=== PATIENT | female | born 1995 | race Hispanic/Latino ===

== ENCOUNTER 2020-01-26 00:48 | Inpatient (IN) | payer MEDICAID ==
[2020-01-26] MEDS ORDERED: NalbUPHINE 10 MG/1 ML INJ IV PRN (01:25)
[2020-01-26] MEDS ORDERED: fentaNYL 100 MCG/2 ML INJ IV PRN (01:25)
[2020-01-26] MEDS ORDERED: ePHEDrine SULFATE 50 MG/1 ML INJ IV PRN ×2 (01:25→14:07)
[2020-01-26] MEDS ORDERED: MINERAL OIL 30 ML ORAL LIQD PO PRN (01:25)
[2020-01-26] MEDS ORDERED: ONDANSETRON 4 MG/2 ML INJ IV PRN (01:25)
[2020-01-26] MEDS ORDERED: BUTORPHANOL 2 MG/1 ML INJ IV PRN (01:25)
[2020-01-26] MEDS ORDERED: TERBUTALINE 1 MG/1 ML INJ SUB-Q PRN (01:25)
[2020-01-26] MEDS ORDERED: LIDOCAINE (2%) 20 MG/1 ML VIAL 20 ML MDV INFILTRATI ONE (01:25)
--- NOTE | 2020-01-26 01:34 | History and Physical Report ---
History of Present Illness Date of examination: 01/26/20 Chief complaint: SROM History of present illness: EDC Calculations LMP: 02/10/2020 Past History : 1 Term Births: 0 Premature Births: 0 Living Children: 0 Para: 0 Mult. Births: 0 Prev : 0 Aborta: 0 Elect. Ab: 0 Spont. Ab: 0 Ectopics: 0 Past Medical History: Reviewed history and no changes required: Negative Past Medical History Past Surgical History: Reviewed history and no changes required: negative Past Medical History Anesthesia Complications: negative Anemia: negative Autoimmune Disorder: negative Bleeding Disorder: negative Blood Transfusions: negative Breast Disease: negative Diabetes: negative Heart Disease: negative Hypertension: negative Hepatitis/Liver Disease: negative Kidney Disease/UTI: negative Neurologic/Epilepsy/Migraines: negative Phlebitis/Varicosities: negative Psychiatric: negative Pulmonary Disease/Asthma: negative Thyroid Disease: negative Hospitalizations: negative Surgery (Non-x ray tech): negative Abnormal PAP: negative JANE Exposure: negative Infertility: negative Uterine Anomaly: negative Uterine Surgery (not C/S): negative Other Gynecologic Problems: negative Infection History Hx of STD: none HIV Risk Eval: no Hepatitis B Risk Eval: low risk Personal hx. of genital herpes: no Partner hx. of genital herpes: no Rash, Viral, or Febrile illness since last LMP? no Varicella/Chicken Pox Status: Previous Disease TB Risk: no Infection History Comments: Also had vaccine for chickpox Genetic History Congenital Heart Defect: Mom: no Dad: no Nathan Disease: Mom: no Dad: no Thalassemia Mom: no Dad: no Neural Tube Defect Mom: no Dad: no Down's Syndrome Mom: no Dad: no Keenan-Sachs Mom: no Dad: no Sickle Cell Disease/Trait Mom: no Dad: no Hemophilia Mom: no Dad: no Muscular Dystrophy Mom: no Dad: no Cystic Fibrosis Mom: no Dad: no [place] Chorea Mom: no Dad: no Mental Retardation Mom: no Dad: no Fragile X Mom: no Dad: no Other Genetic/Chromosomal Disorder Mom: no Dad: no Child w/other defect Mom: no Dad: no Enviromental Exposures Xray Exposure: yes Medication, drug, or alcohol use since LMP: no Chemical/Other Exposure: no Exposure to Cat Liter: no Hx of Parvovirus (Fifth Disease): no Occupational Exposure to Children: none 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 Little exposure to X-rays. 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 (see HPI) Family/Genetic History: other (see DANIELA) - Obstetrical History Expected Date of Delivery: 02/10/20 Actual Gestation: 38 Week(s) 0 Day(s) : 1 Para: 0 Hx # Term Pregnancies: 0 Number of Pregnancies: 0 Spontaneous Abortions: 0 Induced : 0 Number of Living Children: 0 Medications and Allergies Allergies Allergy/AdvReac Type Severity Reaction Status Date / Time No Known Allergies Allergy Verified 01/26/20 01:30 Home Medications Medication Instructions Recorded Confirmed Last Taken Type Ferrous Sulfate [Feosol 325 MG tab] 325 mg PO BID #60 tablet 01/27/20 Unknown Rx Ibuprofen [Motrin 800 MG tab] 800 mg PO Q6H PRN #30 tablet 01/27/20 Unknown Rx Lidocain2.5%/Prilocai2.5% [Emla] 2 gm TP ONCE #1 tube 01/27/20 Unknown Rx Active Meds: Active Medications Butorphanol Tartrate (Stadol) 2 mg IV Q2H PRN PRN Reason: Pain , Severe (7-10) Ephedrine Sulfate (Ephedrine Sulfate) 10 mg IV Q2M PRN PRN Reason: Hypotension Fentanyl (Sublimaze) 100 mcg IV Q2H PRN PRN Reason: Pain,Severe (7-10) LABOR PAIN Oxytocin/Sodium Chloride (Pitocin/Ns 30 Unit/500ml) 30 units in 500 mls @ 2 mls/hr IV TITR ROSSY; Protocol Lactated Ringer's (Lactated Ringers) 1,000 mls @ 125 mls/hr IV DIRECT ROSSY Oxytocin/Sodium Chloride (Pitocin/Ns 30 Unit/500ml) 30 units in 500 mls @ 40 mls/hr IV TITR ROSSY; Protocol Lidocaine (Xylocaine 2%) 20 ml INFILTRATI ONCE ONE Stop: 01/26/20 01:26 Mineral Oil (Mineral Oil) 30 ml PO QHS PRN PRN Reason: Constipation Nalbuphine HCl (Nalbuphine) 10 mg IV Q2H PRN PRN Reason: Pain, Moderate (4-6) Ondansetron HCl (Zofran) 4 mg IV Q8H PRN PRN Reason: Nausea And Vomiting Terbutaline Sulfate (Brethine) 0.25 mg SUB-Q ONCE PRN PRN Reason: Hyperstimulation/Hypertonicity Review of Systems All systems: negative - Vital Signs Vital signs: Vital Signs Pulse BP 100 H 132/77 01/26/20 01:18 01/26/20 01:18 Temp Pulse Resp BP Pulse Ox 112 H 132/77 97 01/26/20 01:30 01/26/20 01:18 01/26/20 01:30 - Physical Exam Breasts: Positive: normal Cardiovascular: Regular rate Lungs: Positive: Normal air movement Abdomen: Positive: normal appearance, soft Genitourinary (Female): Positive: normal external genitalia, normal perenium Vagina: Positive: normal moisture (clear amniotic fluid) Uterus: Positive: normal size Anus/Rectum: Positive: normal perianal skin - Obstetrical FHR: auscultation normal Uterine Contraction Monitor Mode: External Cervical Dilatation: 1 (1/thick/-3 per triage nurse) Uterine Contraction Pattern: Irregular Uterine Tone Measurement Phase: Contraction Uterine Contraction Intensity: Mild Results Result Diagrams: 01/26/20 01:25 All other labs normal. Assessment and Plan 24y/o @ 37+6 weeks arrived with c/o srom - clear fluid. GBS neg. mild ctx present. - Patient Problems (1) 37 or more weeks gestation of Current Visit: Yes Status: Acute (2) SROM (spontaneous rupture of membranes) Current Visit: Yes Status: Acute Plan to address problem: limit SVE temp q2h will start pitocin PRN if labor does not naturally begin Monitor for s/s infection
[2020-01-26 01:36] LABS: Hematocrit 36.8 % (30.3-42.9); Hemoglobin 13.1 gm/dl (10.1-14.3); Mean Corpuscular HGB Conc 36 % (30-34); Mean Corpuscular Volume 94 fl (79-97); Platelet Count 203 K/mm3 (140-440); Red Blood Count 3.93 M/mm3 (3.65-5.03); Red Cell Distribution Width 13.3 % (13.2-15.2)
[2020-01-26] MEDS ORDERED: OXYTOCIN DRIP 30 UNITS/500 ML BAG IV SCH ×2 (02:00→05:00)
[2020-01-26] MEDS ORDERED: LACTATED RINGERS 1,000 ML IV SCH (02:00)
--- NOTE | 2020-01-26 08:38 | Progress Note ---
Assessment and Plan A: 24 y.o. @ 38 + wks with SROM @ 0030 for clear fluid. Cervical exam 1.5/50/-1. P; Continue with Pitocin per protocol. RN to administer pain medication when needed. Subjective - Subjective Date of service: 01/26/20 (Pt feeling some ctxs) Principal diagnosis: Term IUP, SROM @ 0030 for clear fluid Patient reports: movement normal, contractions Objective - Vital Signs Vital Signs: Vital Signs - 12hr 01/26/20 01/26/20 01/26/20 01:18 01:20 01:24 Temperature 98.1 F Pulse Rate 100 H 100 H Respiratory 16 Rate Blood Pressure 132/77 Blood Pressure [Right] O2 Sat by Pulse 97 Oximetry 01/26/20 01/26/20 01/26/20 01:25 01:30 01:35 Temperature Pulse Rate 105 H 112 H 100 H Respiratory Rate Blood Pressure Blood Pressure [Right] O2 Sat by Pulse 97 97 98 Oximetry 01/26/20 01/26/20 01/26/20 01:40 01:45 02:00 Temperature 97.9 F Pulse Rate 97 H 95 H 81 Respiratory 16 Rate Blood Pressure Blood Pressure 117/64 [Right] O2 Sat by Pulse 97 96 98 Oximetry 01/26/20 01/26/20 01/26/20 02:15 02:20 02:25 Temperature Pulse Rate 90 96 H 107 H Respiratory Rate Blood Pressure Blood Pressure [Right] O2 Sat by Pulse 97 98 96 Oximetry 01/26/20 01/26/20 01/26/20 02:30 02:35 02:39 Temperature Pulse Rate 97 H 89 81 Respiratory Rate Blood Pressure 117/64 Blood Pressure [Right] O2 Sat by Pulse 98 98 Oximetry 01/26/20 01/26/20 01/26/20 02:40 02:45 02:50 Temperature Pulse Rate 96 H 89 86 Respiratory Rate Blood Pressure Blood Pressure [Right] O2 Sat by Pulse 98 97 97 Oximetry 01/26/20 01/26/20 01/26/20 02:55 03:00 03:05 Temperature Pulse Rate 91 H 95 H 100 H Respiratory Rate Blood Pressure Blood Pressure [Right] O2 Sat by Pulse 96 98 98 Oximetry 01/26/20 01/26/20 01/26/20 03:10 03:15 03:20 Temperature Pulse Rate 91 H 96 H 85 Respiratory Rate Blood Pressure Blood Pressure [Right] O2 Sat by Pulse 98 98 98 Oximetry 01/26/20 01/26/20 01/26/20 03:25 03:30 03:35 Temperature Pulse Rate 93 H 79 89 Respiratory Rate Blood Pressure Blood Pressure [Right] O2 Sat by Pulse 98 96 97 Oximetry 01/26/20 01/26/20 01/26/20 03:40 03:45 03:50 Temperature Pulse Rate 92 H 100 H 84 Respiratory Rate Blood Pressure Blood Pressure [Right] O2 Sat by Pulse 97 98 98 Oximetry 01/26/20 01/26/20 01/26/20 03:55 04:00 04:05 Temperature 97.9 F Pulse Rate 76 68 79 Respiratory Rate Blood Pressure Blood Pressure [Right] O2 Sat by Pulse 97 98 97 Oximetry 01/26/20 01/26/20 01/26/20 04:10 04:15 04:20 Temperature Pulse Rate 81 79 81 Respiratory Rate Blood Pressure Blood Pressure [Right] O2 Sat by Pulse 99 98 98 Oximetry 01/26/20 01/26/20 01/26/20 04:25 04:30 04:35 Temperature Pulse Rate 80 94 H 82 Respiratory Rate Blood Pressure Blood Pressure [Right] O2 Sat by Pulse 98 98 97 Oximetry 01/26/20 01/26/20 01/26/20 04:40 04:45 04:50 Temperature Pulse Rate 81 76 78 Respiratory Rate Blood Pressure Blood Pressure [Right] O2 Sat by Pulse 98 98 98 Oximetry 01/26/20 01/26/20 01/26/20 05:00 05:06 05:11 Temperature 97.5 F L Pulse Rate 76 75 84 Respiratory 18 Rate Blood Pressure 133/88 Blood Pressure 133/88 [Right] O2 Sat by Pulse 98 99 97 Oximetry 01/26/20 01/26/20 01/26/20 05:16 05:21 05:26 Temperature Pulse Rate 87 87 87 Respiratory Rate Blood Pressure Blood Pressure [Right] O2 Sat by Pulse 97 97 97 Oximetry 01/26/20 01/26/20 01/26/20 05:31 05:36 05:41 Temperature Pulse Rate 75 86 75 Respiratory Rate Blood Pressure Blood Pressure [Right] O2 Sat by Pulse 97 97 97 Oximetry 01/26/20 01/26/20 01/26/20 05:46 05:51 05:56 Temperature Pulse Rate 77 84 73 Respiratory Rate Blood Pressure Blood Pressure [Right] O2 Sat by Pulse 98 97 97 Oximetry 01/26/20 01/26/20 01/26/20 06:00 06:01 06:06 Temperature 97.5 F L Pulse Rate 72 72 Respiratory Rate Blood Pressure Blood Pressure [Right] O2 Sat by Pulse 97 97 Oximetry 01/26/20 01/26/20 01/26/20 06:11 06:16 06:21 Temperature Pulse Rate 72 67 78 Respiratory Rate Blood Pressure Blood Pressure [Right] O2 Sat by Pulse 98 97 97 Oximetry 01/26/20 01/26/20 01/26/20 06:26 06:31 06:36 Temperature Pulse Rate 75 72 73 Respiratory Rate Blood Pressure Blood Pressure [Right] O2 Sat by Pulse 98 98 98 Oximetry 01/26/20 01/26/20 01/26/20 06:41 06:46 06:51 Temperature Pulse Rate 81 83 63 Respiratory Rate Blood Pressure Blood Pressure [Right] O2 Sat by Pulse 98 97 97 Oximetry 01/26/20 01/26/20 01/26/20 06:56 07:01 07:11 Temperature Pulse Rate 76 69 86 Respiratory Rate Blood Pressure Blood Pressure [Right] O2 Sat by Pulse 97 98 94 Oximetry 01/26/20 01/26/20 01/26/20 07:12 07:16 07:21 Temperature Pulse Rate 85 78 74 Respiratory Rate Blood Pressure Blood Pressure [Right] O2 Sat by Pulse 94 100 98 Oximetry 01/26/20 01/26/20 01/26/20 07:26 07:31 07:36 Temperature Pulse Rate 83 92 H 81 Respiratory Rate Blood Pressure Blood Pressure [Right] O2 Sat by Pulse 98 97 97 Oximetry 01/26/20 01/26/20 01/26/20 07:41 07:46 07:51 Temperature Pulse Rate 91 H 73 78 Respiratory Rate Blood Pressure Blood Pressure [Right] O2 Sat by Pulse 97 99 98 Oximetry 01/26/20 01/26/20 01/26/20 07:56 08:01 08:06 Temperature Pulse Rate 84 90 95 H Respiratory Rate Blood Pressure Blood Pressure [Right] O2 Sat by Pulse 98 97 97 Oximetry 01/26/20 01/26/20 01/26/20 08:11 08:16 08:21 Temperature Pulse Rate 80 77 75 Respiratory Rate Blood Pressure Blood Pressure [Right] O2 Sat by Pulse 98 98 98 Oximetry 01/26/20 01/26/20 08:26 08:31 Temperature Pulse Rate 73 82 Respiratory Rate Blood Pressure Blood Pressure [Right] O2 Sat by Pulse 97 96 Oximetry - Exam Breasts: deferred Cardiovascular: Regular rate Lungs: Normal air movement Abdomen: Present: normal appearance, soft Vulva: both: normal Uterus: Present: normal FHR: category 1 Uterine Contraction Monitor Mode: External Cervical Dilatation: 1.5 Cervical Effacement Percentage: 50 station: -1 Uterine Contraction Pattern: Regular Uterine Tone Measurement Phase: Resting Uterine Contraction Intensity: Moderate Extremities: normal Deep Tendon Reflex Grade: Normal +2 - Labs Labs: Abnormal Labs 01/26/20 01:25 MCH 33 H MCHC 36 H Laboratory Results - last 24 hr 01/26/20 01/26/20 01/26/20 01:25 01:25 01:25 WBC 9.9 RBC 3.93 Hgb 13.1 Hct 36.8 MCV 94 MCH 33 H MCHC 36 H RDW 13.3 Plt Count 203 Syphilis IgG Antibody Nonreactive Blood Type O POSITIVE Antibody Screen Negative
[2020-01-26] MEDS ORDERED: NALOXONE 2 MG/2 ML INJ IV PRN ×2 (14:03→14:07)
--- NOTE | 2020-01-26 14:08 | Anesthesia Consultation ---
Anesthesia Consult and Med Hx Date of service: 01/26/20 - Airway Anesthetic Teeth Evaluation: Good ROM Head & Neck: Adequate Mental/Hyoid Distance: Adequate Mallampati Class: Class II Intubation Access Assessment: Probably Good - Pulmonary Exam CTA: Yes - Cardiac Exam Cardiac Exam: RRR - Pre-Operative Health Status ASA Pre-Surgery Classification: ASA2 Proposed Anesthetic Plan: Epidural - Pulmonary Hx Asthma: No COPD: No Hx Pneumonia: No - Cardiovascular System Hx Hypertension: No - Central Nervous System Hx Seizures: No Hx Psychiatric Problems: No - Endocrine Hx Renal Disease: No Hx End Stage Renal Disease: No Hx Hypothyroidism: No Hx Hyperthyroidism: No - Hematic Hx Anemia: No Hx Sickle Cell Disease: No - Other Systems Hx Alcohol Use: No
--- NOTE | 2020-01-26 14:35 | Progress Note ---
Labor Epidural - Labor Epidural Start Time: 14:17 Stop Time: 14:29 Performed by:: TASHA PEÑA Procedure: Patient is requesting epidural for labor pain. H&P, and labs reviewed. Procedure explained, questions answered, consent obtained. Patient in sitting position with blood pressure cuff and pulse ox on and working. Timeout performed immediately before start of procedure. Sterile betadine prep/drape. 3 mL 1% lidocaine skin wheal at L[3]-L[4]. 18-gauge Touhy epidural needle advanced to [id number] with saline at [7] cm. 27-gauge spinal needle advanced until clear, free-flowing CSF. Intrathecal dexmedetomidine [5] mcg administered and needle removed. Epidural catheter advanced to [12] cm, negative aspiration for blood and csf, negative test dose 3 ml 1.5% lidocaine with epinephrine. Sterile steri-strips and tegaderm applied, followed by tape reinforcement. Patient tolerated procedure well. Gabi SARAVIA
[2020-01-26] MEDS ORDERED: fentaNYL-BUPIV 2 MCG/ML-0.125% 200 MCG/100 ML BAG EPIDURAL SCH (15:00)
--- NOTE | 2020-01-26 16:50 | Progress Note ---
Assessment and Plan A: 24 y.o. s/p epidural placement, feeling painful ctxs. Cervical exam: /-. Coronavirus positive. P: Anesthesia to bedside to evaluate patient. Anticipate . Pt currently in isolation d/t positive coronavirus test. Subjective - Subjective Date of service: 01/26/20 (Pt s/p epidural feeling painful ctxs. Coronavirus positive.) Principal diagnosis: Term IUP, SROM @ 0030 for clear fluid Objective - Vital Signs Vital Signs: Vital Signs - 12hr 01/26/20 01/26/20 01/26/20 04:50 05:00 05:06 Temperature 97.5 F L Pulse Rate 78 76 75 Respiratory 18 Rate Blood Pressure 133/88 Blood Pressure 133/88 [Right] O2 Sat by Pulse 98 98 99 Oximetry 01/26/20 01/26/20 01/26/20 05:11 05:16 05:21 Temperature Pulse Rate 84 87 87 Respiratory Rate Blood Pressure Blood Pressure [Right] O2 Sat by Pulse 97 97 97 Oximetry 01/26/20 01/26/20 01/26/20 05:26 05:31 05:36 Temperature Pulse Rate 87 75 86 Respiratory Rate Blood Pressure Blood Pressure [Right] O2 Sat by Pulse 97 97 97 Oximetry 01/26/20 01/26/20 01/26/20 05:41 05:46 05:51 Temperature Pulse Rate 75 77 84 Respiratory Rate Blood Pressure Blood Pressure [Right] O2 Sat by Pulse 97 98 97 Oximetry 01/26/20 01/26/20 01/26/20 05:56 06:00 06:01 Temperature 97.5 F L Pulse Rate 73 72 Respiratory Rate Blood Pressure Blood Pressure [Right] O2 Sat by Pulse 97 97 Oximetry 01/26/20 01/26/20 01/26/20 06:06 06:11 06:16 Temperature Pulse Rate 72 72 67 Respiratory Rate Blood Pressure Blood Pressure [Right] O2 Sat by Pulse 97 98 97 Oximetry 01/26/20 01/26/20 01/26/20 06:21 06:26 06:31 Temperature Pulse Rate 78 75 72 Respiratory Rate Blood Pressure Blood Pressure [Right] O2 Sat by Pulse 97 98 98 Oximetry 01/26/20 01/26/20 01/26/20 06:36 06:41 06:46 Temperature Pulse Rate 73 81 83 Respiratory Rate Blood Pressure Blood Pressure [Right] O2 Sat by Pulse 98 98 97 Oximetry 01/26/20 01/26/20 01/26/20 06:51 06:56 07:01 Temperature Pulse Rate 63 76 69 Respiratory Rate Blood Pressure Blood Pressure [Right] O2 Sat by Pulse 97 97 98 Oximetry 01/26/20 01/26/20 01/26/20 07:11 07:12 07:16 Temperature Pulse Rate 86 85 78 Respiratory Rate Blood Pressure Blood Pressure [Right] O2 Sat by Pulse 94 94 100 Oximetry 01/26/20 01/26/20 01/26/20 07:21 07:26 07:31 Temperature Pulse Rate 74 83 92 H Respiratory Rate Blood Pressure Blood Pressure [Right] O2 Sat by Pulse 98 98 97 Oximetry 01/26/20 01/26/20 01/26/20 07:36 07:41 07:46 Temperature Pulse Rate 81 91 H 73 Respiratory Rate Blood Pressure Blood Pressure [Right] O2 Sat by Pulse 97 97 99 Oximetry 01/26/20 01/26/20 01/26/20 07:51 07:56 08:01 Temperature Pulse Rate 78 84 90 Respiratory Rate Blood Pressure Blood Pressure [Right] O2 Sat by Pulse 98 98 97 Oximetry 01/26/20 01/26/20 01/26/20 08:06 08:11 08:16 Temperature Pulse Rate 95 H 80 77 Respiratory Rate Blood Pressure Blood Pressure [Right] O2 Sat by Pulse 97 98 98 Oximetry 01/26/20 01/26/20 01/26/20 08:21 08:26 08:31 Temperature Pulse Rate 75 73 82 Respiratory Rate Blood Pressure Blood Pressure [Right] O2 Sat by Pulse 98 97 96 Oximetry 01/26/20 01/26/20 01/26/20 08:36 08:41 08:43 Temperature Pulse Rate 87 95 H 81 Respiratory Rate Blood Pressure 126/60 Blood Pressure [Right] O2 Sat by Pulse 98 96 94 Oximetry 01/26/20 01/26/20 01/26/20 08:46 08:49 08:51 Temperature Pulse Rate 80 79 108 H Respiratory Rate Blood Pressure Blood Pressure [Right] O2 Sat by Pulse 97 94 96 Oximetry 01/26/20 01/26/20 01/26/20 08:56 09:01 09:06 Temperature Pulse Rate 89 73 80 Respiratory Rate Blood Pressure Blood Pressure [Right] O2 Sat by Pulse 97 96 97 Oximetry 01/26/20 01/26/20 01/26/20 09:11 09:16 09:18 Temperature Pulse Rate 77 76 77 Respiratory Rate Blood Pressure Blood Pressure [Right] O2 Sat by Pulse 97 96 94 Oximetry 01/26/20 01/26/20 01/26/20 09:21 09:26 09:31 Temperature Pulse Rate 85 98 H 83 Respiratory Rate Blood Pressure Blood Pressure [Right] O2 Sat by Pulse 95 96 97 Oximetry 01/26/20 01/26/20 01/26/20 09:36 09:41 09:46 Temperature Pulse Rate 77 84 73 Respiratory Rate Blood Pressure Blood Pressure [Right] O2 Sat by Pulse 96 97 97 Oximetry 01/26/20 01/26/20 01/26/20 09:51 09:56 10:01 Temperature Pulse Rate 89 83 74 Respiratory Rate Blood Pressure Blood Pressure [Right] O2 Sat by Pulse 97 97 97 Oximetry 01/26/20 01/26/20 01/26/20 10:06 10:11 10:16 Temperature Pulse Rate 83 80 76 Respiratory Rate Blood Pressure Blood Pressure [Right] O2 Sat by Pulse 96 97 97 Oximetry 01/26/20 01/26/20 01/26/20 10:21 10:26 10:31 Temperature Pulse Rate 73 82 85 Respiratory Rate Blood Pressure Blood Pressure [Right] O2 Sat by Pulse 97 97 98 Oximetry 01/26/20 01/26/20 01/26/20 10:36 10:41 10:46 Temperature Pulse Rate 70 78 73 Respiratory Rate Blood Pressure Blood Pressure [Right] O2 Sat by Pulse 98 97 98 Oximetry 01/26/20 01/26/20 01/26/20 10:51 10:56 10:57 Temperature Pulse Rate 73 74 74 Respiratory Rate Blood Pressure Blood Pressure [Right] O2 Sat by Pulse 98 100 94 Oximetry 01/26/20 01/26/20 01/26/20 11:01 11:03 11:06 Temperature Pulse Rate 70 74 73 Respiratory Rate Blood Pressure Blood Pressure [Right] O2 Sat by Pulse 98 92 92 Oximetry 01/26/20 01/26/20 01/26/20 11:11 11:16 11:19 Temperature Pulse Rate 72 72 72 Respiratory Rate Blood Pressure Blood Pressure [Right] O2 Sat by Pulse 95 97 93 Oximetry 01/26/20 01/26/20 01/26/20 11:21 11:26 11:41 Temperature Pulse Rate 81 90 89 Respiratory Rate Blood Pressure Blood Pressure [Right] O2 Sat by Pulse 96 97 97 Oximetry 01/26/20 01/26/20 01/26/20 11:46 11:51 11:56 Temperature Pulse Rate 79 75 80 Respiratory Rate Blood Pressure Blood Pressure [Right] O2 Sat by Pulse 99 98 97 Oximetry 01/26/20 01/26/20 01/26/20 11:59 12:01 12:06 Temperature Pulse Rate 81 87 84 Respiratory Rate Blood Pressure Blood Pressure [Right] O2 Sat by Pulse 94 97 97 Oximetry 01/26/20 01/26/20 01/26/20 12:11 12:16 13:30 Temperature Pulse Rate 68 77 77 Respiratory Rate Blood Pressure Blood Pressure [Right] O2 Sat by Pulse 98 99 97 Oximetry 01/26/20 01/26/20 01/26/20 13:31 13:35 13:40 Temperature Pulse Rate 74 86 81 Respiratory Rate Blood Pressure 133/67 Blood Pressure [Right] O2 Sat by Pulse 98 96 Oximetry 01/26/20 01/26/20 01/26/20 13:45 13:50 13:55 Temperature Pulse Rate 86 91 H 112 H Respiratory Rate Blood Pressure Blood Pressure [Right] O2 Sat by Pulse 98 99 98 Oximetry 01/26/20 01/26/20 01/26/20 14:00 14:05 14:10 Temperature Pulse Rate 102 H 86 101 H Respiratory Rate Blood Pressure Blood Pressure [Right] O2 Sat by Pulse 99 99 99 Oximetry 01/26/20 01/26/20 01/26/20 14:15 14:20 14:25 Temperature Pulse Rate 86 86 85 Respiratory Rate Blood Pressure Blood Pressure [Right] O2 Sat by Pulse 99 98 99 Oximetry 01/26/20 01/26/20 01/26/20 14:27 14:29 14:30 Temperature Pulse Rate 78 83 77 Respiratory Rate Blood Pressure 135/70 114/72 113/56 Blood Pressure [Right] O2 Sat by Pulse 98 Oximetry 01/26/20 01/26/20 01/26/20 14:32 14:34 14:35 Temperature Pulse Rate 82 82 89 Respiratory Rate Blood Pressure 118/69 118/69 Blood Pressure [Right] O2 Sat by Pulse 97 Oximetry 01/26/20 01/26/20 01/26/20 14:37 14:38 14:40 Temperature Pulse Rate 77 75 78 Respiratory Rate Blood Pressure 132/88 127/63 124/55 Blood Pressure [Right] O2 Sat by Pulse 97 Oximetry 01/26/20 01/26/20 01/26/20 14:42 14:44 14:45 Temperature Pulse Rate 81 90 77 Respiratory Rate Blood Pressure 125/62 116/59 Blood Pressure [Right] O2 Sat by Pulse 97 Oximetry 01/26/20 01/26/20 01/26/20 14:46 14:48 14:50 Temperature Pulse Rate 76 82 93 H Respiratory Rate Blood Pressure 125/67 125/66 124/66 Blood Pressure [Right] O2 Sat by Pulse 98 Oximetry 01/26/20 01/26/20 01/26/20 14:52 14:54 14:55 Temperature Pulse Rate 77 81 75 Respiratory Rate Blood Pressure 129/68 127/67 Blood Pressure [Right] O2 Sat by Pulse 96 Oximetry 01/26/20 01/26/20 01/26/20 15:00 15:05 15:06 Temperature Pulse Rate 79 71 75 Respiratory Rate Blood Pressure Blood Pressure [Right] O2 Sat by Pulse 98 99 93 Oximetry 01/26/20 01/26/20 01/26/20 15:10 15:15 15:20 Temperature Pulse Rate 89 75 87 Respiratory Rate Blood Pressure Blood Pressure [Right] O2 Sat by Pulse 93 97 100 Oximetry 01/26/20 01/26/20 01/26/20 15:22 15:25 15:30 Temperature Pulse Rate 81 81 82 Respiratory Rate Blood Pressure Blood Pressure [Right] O2 Sat by Pulse 94 100 98 Oximetry 01/26/20 01/26/20 01/26/20 15:35 15:40 15:45 Temperature Pulse Rate 84 84 85 Respiratory Rate Blood Pressure Blood Pressure [Right] O2 Sat by Pulse 100 100 99 Oximetry 01/26/20 01/26/20 01/26/20 15:50 15:52 15:55 Temperature Pulse Rate 77 77 93 H Respiratory Rate Blood Pressure 95/63 Blood Pressure [Right] O2 Sat by Pulse 98 98 Oximetry 01/26/20 01/26/20 01/26/20 16:00 16:05 16:09 Temperature Pulse Rate 102 H 82 85 Respiratory Rate Blood Pressure 123/73 Blood Pressure [Right] O2 Sat by Pulse 100 98 Oximetry 01/26/20 01/26/20 01/26/20 16:10 16:15 16:20 Temperature Pulse Rate 78 74 77 Respiratory Rate Blood Pressure Blood Pressure [Right] O2 Sat by Pulse 100 100 100 Oximetry 01/26/20 01/26/20 01/26/20 16:23 16:25 16:30 Temperature Pulse Rate 68 66 70 Respiratory Rate Blood Pressure 111/56 Blood Pressure [Right] O2 Sat by Pulse 99 97 Oximetry 01/26/20 01/26/20 01/26/20 16:35 16:38 16:40 Temperature Pulse Rate 83 93 H 77 Respiratory Rate Blood Pressure 106/53 Blood Pressure [Right] O2 Sat by Pulse 96 96 Oximetry - Exam Breasts: deferred Cardiovascular: Regular rate Lungs: Normal air movement Abdomen: Present: normal appearance, soft Vulva: both: normal Uterus: Present: normal FHR: category 1 Uterine Contraction Monitor Mode: External Cervical Dilatation: 4 Cervical Effacement Percentage: 80 station: -1 Uterine Contraction Pattern: Regular Uterine Tone Measurement Phase: Resting Uterine Contraction Intensity: Moderate Extremities: normal Deep Tendon Reflex Grade: Normal +2 - Labs Labs: Abnormal Labs 01/26/20 01/26/20 01:25 10:09 MCH 33 H MCHC 36 H Coronavirus (PCR) Positive A Laboratory Results - last 24 hr 01/26/20 01/26/20 01/26/20 01:25 01:25 01:25 WBC 9.9 RBC 3.93 Hgb 13.1 Hct 36.8 MCV 94 MCH 33 H MCHC 36 H RDW 13.3 Plt Count 203 Syphilis IgG Antibody Nonreactive Coronavirus (PCR) Blood Type O POSITIVE Antibody Screen Negative 01/26/20 10:09 WBC RBC Hgb Hct MCV MCH MCHC RDW Plt Count Syphilis IgG Antibody Coronavirus (PCR) Positive A Blood Type Antibody Screen
--- NOTE | 2020-01-26 19:12 | Progress Note ---
Assessment and Plan - Patient Problems (1) 37 or more weeks gestation of Current Visit: Yes Status: Acute (2) SROM (spontaneous rupture of membranes) Current Visit: Yes Status: Acute Plan to address problem: -con't pitocin at this time -some cervical change noted -advised of caput and labor curve and proper progression of labor -all questions were addressed and answered. Subjective - Subjective Date of service: 01/26/20 Principal diagnosis: Term IUP, SROM @ 0030 for clear fluid Interval history: Pt now comfortable with epidural in place. ex shows some caput but cx change in noted. I inquired of pt or significant other had questions regarding dx or labor progression. Both expressed no questions at this time. Patient reports: movement normal, contractions, no new complaints Objective - Vital Signs Vital Signs: Vital Signs - 12hr 01/26/20 01/26/20 01/26/20 07:11 07:12 07:16 Temperature Pulse Rate 86 85 78 Respiratory Rate Blood Pressure Blood Pressure [Right] O2 Sat by Pulse 94 94 100 Oximetry 01/26/20 01/26/20 01/26/20 07:21 07:26 07:30 Temperature 98.2 F Pulse Rate 74 83 Respiratory 18 Rate Blood Pressure Blood Pressure [Right] O2 Sat by Pulse 98 98 Oximetry 01/26/20 01/26/20 01/26/20 07:31 07:36 07:41 Temperature Pulse Rate 92 H 81 91 H Respiratory Rate Blood Pressure Blood Pressure [Right] O2 Sat by Pulse 97 97 97 Oximetry 01/26/20 01/26/20 01/26/20 07:46 07:51 07:56 Temperature Pulse Rate 73 78 84 Respiratory Rate Blood Pressure Blood Pressure [Right] O2 Sat by Pulse 99 98 98 Oximetry 01/26/20 01/26/20 01/26/20 08:01 08:06 08:11 Temperature Pulse Rate 90 95 H 80 Respiratory Rate Blood Pressure Blood Pressure [Right] O2 Sat by Pulse 97 97 98 Oximetry 01/26/20 01/26/20 01/26/20 08:16 08:21 08:26 Temperature Pulse Rate 77 75 73 Respiratory Rate Blood Pressure Blood Pressure [Right] O2 Sat by Pulse 98 98 97 Oximetry 01/26/20 01/26/20 01/26/20 08:31 08:36 08:41 Temperature Pulse Rate 82 87 95 H Respiratory Rate Blood Pressure 126/60 Blood Pressure [Right] O2 Sat by Pulse 96 98 96 Oximetry 01/26/20 01/26/20 01/26/20 08:43 08:46 08:49 Temperature Pulse Rate 81 80 79 Respiratory Rate Blood Pressure Blood Pressure [Right] O2 Sat by Pulse 94 97 94 Oximetry 01/26/20 01/26/20 01/26/20 08:51 08:56 09:01 Temperature Pulse Rate 108 H 89 73 Respiratory Rate Blood Pressure Blood Pressure [Right] O2 Sat by Pulse 96 97 96 Oximetry 01/26/20 01/26/20 01/26/20 09:06 09:11 09:16 Temperature Pulse Rate 80 77 76 Respiratory Rate Blood Pressure Blood Pressure [Right] O2 Sat by Pulse 97 97 96 Oximetry 01/26/20 01/26/20 01/26/20 09:18 09:21 09:26 Temperature Pulse Rate 77 85 98 H Respiratory Rate Blood Pressure Blood Pressure [Right] O2 Sat by Pulse 94 95 96 Oximetry 01/26/20 01/26/20 01/26/20 09:31 09:36 09:41 Temperature Pulse Rate 83 77 84 Respiratory Rate Blood Pressure Blood Pressure [Right] O2 Sat by Pulse 97 96 97 Oximetry 01/26/20 01/26/20 01/26/20 09:46 09:51 09:56 Temperature Pulse Rate 73 89 83 Respiratory Rate Blood Pressure Blood Pressure [Right] O2 Sat by Pulse 97 97 97 Oximetry 01/26/20 01/26/20 01/26/20 10:01 10:06 10:11 Temperature Pulse Rate 74 83 80 Respiratory Rate Blood Pressure Blood Pressure [Right] O2 Sat by Pulse 97 96 97 Oximetry 01/26/20 01/26/20 01/26/20 10:16 10:21 10:26 Temperature Pulse Rate 76 73 82 Respiratory Rate Blood Pressure Blood Pressure [Right] O2 Sat by Pulse 97 97 97 Oximetry 01/26/20 01/26/20 01/26/20 10:31 10:36 10:41 Temperature Pulse Rate 85 70 78 Respiratory Rate Blood Pressure Blood Pressure [Right] O2 Sat by Pulse 98 98 97 Oximetry 01/26/20 01/26/20 01/26/20 10:46 10:51 10:56 Temperature Pulse Rate 73 73 74 Respiratory Rate Blood Pressure Blood Pressure [Right] O2 Sat by Pulse 98 98 100 Oximetry 01/26/20 01/26/20 01/26/20 10:57 11:01 11:03 Temperature Pulse Rate 74 70 74 Respiratory Rate Blood Pressure Blood Pressure [Right] O2 Sat by Pulse 94 98 92 Oximetry 01/26/20 01/26/20 01/26/20 11:06 11:11 11:16 Temperature Pulse Rate 73 72 72 Respiratory Rate Blood Pressure Blood Pressure [Right] O2 Sat by Pulse 92 95 97 Oximetry 01/26/20 01/26/20 01/26/20 11:19 11:21 11:26 Temperature Pulse Rate 72 81 90 Respiratory Rate Blood Pressure Blood Pressure [Right] O2 Sat by Pulse 93 96 97 Oximetry 01/26/20 01/26/20 01/26/20 11:41 11:46 11:51 Temperature Pulse Rate 89 79 75 Respiratory Rate Blood Pressure Blood Pressure [Right] O2 Sat by Pulse 97 99 98 Oximetry 01/26/20 01/26/20 01/26/20 11:56 11:59 12:00 Temperature 97.8 F Pulse Rate 80 81 Respiratory 18 Rate Blood Pressure Blood Pressure [Right] O2 Sat by Pulse 97 94 Oximetry 01/26/20 01/26/20 01/26/20 12:01 12:06 12:11 Temperature Pulse Rate 87 84 68 Respiratory Rate Blood Pressure Blood Pressure [Right] O2 Sat by Pulse 97 97 98 Oximetry 01/26/20 01/26/20 01/26/20 12:16 13:30 13:31 Temperature Pulse Rate 77 77 74 Respiratory Rate Blood Pressure 133/67 Blood Pressure [Right] O2 Sat by Pulse 99 97 Oximetry 01/26/20 01/26/20 01/26/20 13:35 13:40 13:45 Temperature Pulse Rate 86 81 86 Respiratory Rate Blood Pressure Blood Pressure [Right] O2 Sat by Pulse 98 96 98 Oximetry 01/26/20 01/26/20 01/26/20 13:50 13:55 14:00 Temperature Pulse Rate 91 H 112 H 102 H Respiratory Rate Blood Pressure Blood Pressure [Right] O2 Sat by Pulse 99 98 99 Oximetry 01/26/20 01/26/20 01/26/20 14:05 14:10 14:15 Temperature Pulse Rate 86 101 H 86 Respiratory Rate Blood Pressure Blood Pressure [Right] O2 Sat by Pulse 99 99 99 Oximetry 01/26/20 01/26/20 01/26/20 14:20 14:25 14:27 Temperature Pulse Rate 86 85 78 Respiratory Rate Blood Pressure 135/70 Blood Pressure [Right] O2 Sat by Pulse 98 99 Oximetry 01/26/20 01/26/20 01/26/20 14:29 14:30 14:32 Temperature Pulse Rate 83 77 82 Respiratory Rate Blood Pressure 114/72 113/56 118/69 Blood Pressure [Right] O2 Sat by Pulse 98 Oximetry 01/26/20 01/26/20 01/26/20 14:34 14:35 14:37 Temperature Pulse Rate 82 89 77 Respiratory Rate Blood Pressure 118/69 132/88 Blood Pressure [Right] O2 Sat by Pulse 97 Oximetry 01/26/20 01/26/20 01/26/20 14:38 14:40 14:42 Temperature Pulse Rate 75 78 81 Respiratory Rate Blood Pressure 127/63 124/55 125/62 Blood Pressure [Right] O2 Sat by Pulse 97 Oximetry 01/26/20 01/26/20 01/26/20 14:44 14:45 14:46 Temperature Pulse Rate 90 77 76 Respiratory Rate Blood Pressure 116/59 125/67 Blood Pressure [Right] O2 Sat by Pulse 97 Oximetry 01/26/20 01/26/20 01/26/20 14:48 14:50 14:52 Temperature Pulse Rate 82 93 H 77 Respiratory Rate Blood Pressure 125/66 124/66 129/68 Blood Pressure [Right] O2 Sat by Pulse 98 Oximetry 01/26/20 01/26/20 01/26/20 14:54 14:55 15:00 Temperature Pulse Rate 81 75 79 Respiratory Rate Blood Pressure 127/67 Blood Pressure [Right] O2 Sat by Pulse 96 98 Oximetry 01/26/20 01/26/20 01/26/20 15:05 15:06 15:10 Temperature Pulse Rate 71 75 89 Respiratory Rate Blood Pressure Blood Pressure [Right] O2 Sat by Pulse 99 93 93 Oximetry 01/26/20 01/26/20 01/26/20 15:15 15:20 15:22 Temperature Pulse Rate 75 87 81 Respiratory Rate Blood Pressure Blood Pressure [Right] O2 Sat by Pulse 97 100 94 Oximetry 01/26/20 01/26/20 01/26/20 15:25 15:30 15:35 Temperature Pulse Rate 81 82 84 Respiratory Rate Blood Pressure Blood Pressure [Right] O2 Sat by Pulse 100 98 100 Oximetry 01/26/20 01/26/20 01/26/20 15:40 15:45 15:50 Temperature Pulse Rate 84 85 77 Respiratory Rate Blood Pressure Blood Pressure [Right] O2 Sat by Pulse 100 99 98 Oximetry 01/26/20 01/26/20 01/26/20 15:52 15:55 16:00 Temperature Pulse Rate 77 93 H 102 H Respiratory Rate Blood Pressure 95/63 Blood Pressure [Right] O2 Sat by Pulse 98 100 Oximetry 01/26/20 01/26/20 01/26/20 16:03 16:05 16:09 Temperature 98.1 F Pulse Rate 82 85 Respiratory 18 Rate Blood Pressure 123/73 Blood Pressure [Right] O2 Sat by Pulse 98 Oximetry 01/26/20 01/26/20 01/26/20 16:10 16:15 16:20 Temperature Pulse Rate 78 74 77 Respiratory Rate Blood Pressure Blood Pressure [Right] O2 Sat by Pulse 100 100 100 Oximetry 01/26/20 01/26/20 01/26/20 16:23 16:25 16:30 Temperature Pulse Rate 68 66 70 Respiratory Rate Blood Pressure 111/56 Blood Pressure [Right] O2 Sat by Pulse 99 97 Oximetry 01/26/20 01/26/20 01/26/20 16:35 16:38 16:40 Temperature Pulse Rate 83 93 H 77 Respiratory Rate Blood Pressure 106/53 Blood Pressure [Right] O2 Sat by Pulse 96 96 Oximetry 01/26/20 01/26/20 01/26/20 16:45 16:50 16:53 Temperature Pulse Rate 65 71 64 Respiratory Rate Blood Pressure 107/54 Blood Pressure [Right] O2 Sat by Pulse 97 95 Oximetry 01/26/20 01/26/20 01/26/20 16:55 17:00 17:05 Temperature Pulse Rate 71 77 74 Respiratory Rate Blood Pressure Blood Pressure [Right] O2 Sat by Pulse 96 96 96 Oximetry 01/26/20 01/26/20 01/26/20 17:08 17:10 17:13 Temperature Pulse Rate 64 73 67 Respiratory Rate Blood Pressure 106/53 Blood Pressure [Right] O2 Sat by Pulse 97 94 Oximetry 01/26/20 01/26/20 01/26/20 17:15 17:20 17:24 Temperature Pulse Rate 63 72 64 Respiratory Rate Blood Pressure Blood Pressure [Right] O2 Sat by Pulse 96 95 94 Oximetry 01/26/20 01/26/20 01/26/20 17:25 17:30 17:35 Temperature Pulse Rate 71 58 L 63 Respiratory Rate Blood Pressure 105/49 Blood Pressure [Right] O2 Sat by Pulse 96 96 95 Oximetry 01/26/20 01/26/20 01/26/20 17:40 17:45 17:50 Temperature Pulse Rate 70 58 L 73 Respiratory Rate Blood Pressure 105/50 Blood Pressure [Right] O2 Sat by Pulse 96 96 96 Oximetry 01/26/20 01/26/20 01/26/20 17:53 17:55 18:00 Temperature Pulse Rate 60 59 L 61 Respiratory Rate Blood Pressure 107/54 Blood Pressure [Right] O2 Sat by Pulse 97 97 Oximetry 01/26/20 01/26/20 01/26/20 18:05 18:08 18:10 Temperature Pulse Rate 60 62 59 L Respiratory Rate Blood Pressure 104/53 Blood Pressure [Right] O2 Sat by Pulse 97 97 Oximetry 01/26/20 01/26/20 01/26/20 18:15 18:20 18:23 Temperature Pulse Rate 63 58 L 63 Respiratory Rate Blood Pressure 109/55 Blood Pressure [Right] O2 Sat by Pulse 97 97 Oximetry 01/26/20 01/26/20 01/26/20 18:25 18:30 18:35 Temperature Pulse Rate 60 66 58 L Respiratory Rate Blood Pressure Blood Pressure [Right] O2 Sat by Pulse 97 96 97 Oximetry 01/26/20 01/26/20 01/26/20 18:39 18:40 18:45 Temperature Pulse Rate 64 64 62 Respiratory Rate Blood Pressure 111/55 Blood Pressure [Right] O2 Sat by Pulse 97 97 Oximetry 01/26/20 01/26/20 01/26/20 18:50 18:55 19:00 Temperature Pulse Rate 59 L 66 79 Respiratory Rate Blood Pressure 114/54 Blood Pressure [Right] O2 Sat by Pulse 97 98 99 Oximetry 01/26/20 01/26/20 19:05 19:08 Temperature 98.5 F Pulse Rate 94 H 73 Respiratory 16 Rate Blood Pressure Blood Pressure 119/69 [Right] O2 Sat by Pulse 98 97 Oximetry - Exam FHR: category 1 Cervical Dilatation: 6.5 Cervical Effacement Percentage: 100 station: 0 Uterine Contraction Pattern: Regular Uterine Tone Measurement Phase: Resting Uterine Contraction Intensity: Moderate Extremities: normal - Labs Labs: Abnormal Labs 01/26/20 01/26/20 01:25 10:09 MCH 33 H MCHC 36 H Coronavirus (PCR) Positive A Laboratory Results - last 24 hr 01/26/20 01/26/20 01/26/20 01:25 01:25 01:25 WBC 9.9 RBC 3.93 Hgb 13.1 Hct 36.8 MCV 94 MCH 33 H MCHC 36 H RDW 13.3 Plt Count 203 Syphilis IgG Antibody Nonreactive Coronavirus (PCR) Blood Type O POSITIVE Antibody Screen Negative 01/26/20 10:09 WBC RBC Hgb Hct MCV MCH MCHC RDW Plt Count Syphilis IgG Antibody Coronavirus (PCR) Positive A Blood Type Antibody Screen
[2020-01-27] MEDS ORDERED: diphenhydrAMINE 25 MG CAP PO ONE (00:46)
--- NOTE | 2020-01-27 00:53 | Procedure Note ---
OB Delivery Note - Delivery Date of Delivery: 01/27/20 Surgeon: THEO GAVIRIA Estimated blood loss: 300cc - Vaginal Delivery presentation: vertex Delivery position: OA Intrapartum events: uterine atony (relieved with uterine massage and metherg) Delivery induction: oxytocin Delivery augmentation: pitocin Delivery monitor: external FHT, external uterine Route of delivery: Delivery placenta: spontaneous Delivery cord: nuchal cord (tight clamped x 2 and cut x 1 and reduced) Episiotomy: none Delivery laceration: none Anesthesia: epidural Delivery comments: Delivery as above. Ant shoulder delivered w/o difficulty. There was no dystocia. Rest of infant delivered in usual fashion after nuchal cord had been clamped and reduced. Infant taken to waiting team. Caput was noted after delivery. Placenta delivered spontaneously intact after collection of cord blood. Uterine atony was noted as described above and treated as described above. Infant noted to have temp after delivery. Mother showed no s/sx of chorio and remained afebrile. Put did push w/o mask on. No lacerations were noted. EBL 300ml. - A at 1 minute: 7 at 5 minutes: 8 Gender: Male (6lbs 12 oz(Ian))
[2020-01-27] MEDS ORDERED: WITCH HAZEL/ GLYCERIN PAD TP PRN (00:55)
[2020-01-27] MEDS ORDERED: LANOLIN/ZINC/DIMETHICONE (LANSINOH) 7 GM TP PRN (00:55)
[2020-01-27] MEDS ORDERED: ONDANSETRON 4 MG/2 ML INJ IV PRN (00:55)
[2020-01-27] MEDS ORDERED: MAGNESIUM HYDROXIDE (MOM) ORAL LIQD UDC PO PRN (00:55)
[2020-01-27] MEDS ORDERED: diphenhydrAMINE 25 MG CAP PO PRN (00:55)
[2020-01-27] MEDS ORDERED: METHYLERGONOVINE MALEATE 0.2 MG/ML VIAL IM ONE (01:03)
[2020-01-27] MEDS: IBUPROFEN 800 MG TAB PO SCH ×3 (02:09→17:47)
--- NOTE | 2020-01-27 10:01 | Progress Note ---
Assessment and Plan - Patient Problems (1) Delivery normal Current Visit: Yes Status: Acute Plan to address problem: Patient is doing well less than 12 hours postdelivery. Patient is undecided on control. Patient desires discharge at 24 hours if infant is cleared for discharge which would be midnight tonight. Reassess this evening for discharge. (2) COVID-19 Current Visit: Yes Status: Acute Plan to address problem: Discussed diagnosis and the need for quarantine. Patient is asymptomatic Encouraged to call if she has fever chills nausea vomiting and shortness of breath cough. Subjective - Subjective Principal diagnosis: Term IUP, SROM @ 0030 for clear fluid Patient reports: appetite normal, voiding normally, pain well controlled [place]: doing well Objective - Vital Signs Latest vital signs: Vital Signs Temp Pulse Resp BP BP Pulse Ox 01/27/20 09:00 97.7 F 80 20 120/67 01/27/20 04:45 98.0 F 81 20 115/71 99 01/27/20 03:21 115 H 96 01/27/20 03:16 102 H 96 01/27/20 03:13 206 H 134/66 01/27/20 03:11 93 H 96 01/27/20 03:06 102 H 96 01/27/20 03:01 90 96 01/27/20 02:59 85 125/63 01/27/20 02:56 87 96 01/27/20 02:51 88 95 01/27/20 02:46 89 96 01/27/20 02:43 86 146/77 01/27/20 02:41 94 H 97 01/27/20 02:36 95 H 97 01/27/20 02:31 94 H 97 01/27/20 02:28 84 150/78 01/27/20 02:26 85 98 01/27/20 02:21 83 98 01/27/20 02:16 92 H 97 01/27/20 02:13 83 147/73 01/27/20 02:11 87 98 01/27/20 02:06 96 H 97 01/27/20 02:01 80 98 01/27/20 01:59 76 97/49 01/27/20 01:56 85 98 01/27/20 01:51 82 99 01/27/20 01:46 98 H 99 01/27/20 01:43 86 108/53 01/27/20 01:41 83 98 01/27/20 01:36 88 100 01/27/20 01:31 96 H 99 01/27/20 01:30 100.8 F H 20 01/27/20 01:28 93 H 115/58 01/27/20 01:26 87 100 01/27/20 01:21 89 100 01/27/20 01:16 97 H 100 01/27/20 01:15 20 01/27/20 01:13 90 120/59 01/27/20 01:11 97 H 100 01/27/20 01:10 91 H 94 01/27/20 01:08 91 H 127/60 01/27/20 01:06 106 H 99 01/27/20 01:05 103 H 92 01/27/20 01:01 89 100 01/27/20 01:00 20 01/27/20 00:56 97 H 100 01/27/20 00:53 104 H 135/60 01/27/20 00:51 113 H 98 01/27/20 00:46 107 H 143/62 93 01/27/20 00:45 20 01/27/20 00:41 123 H 99 01/27/20 00:36 113 H 97 01/27/20 00:31 99 H 137/65 97 01/27/20 00:30 98.5 F 20 01/27/20 00:26 151 H 96 01/27/20 00:21 170 H 99 01/27/20 00:18 114 H 82 L 01/27/20 00:16 173 H 100 01/27/20 00:11 156 H 97 01/27/20 00:10 148 H 93 01/27/20 00:06 137 H 99 01/27/20 00:01 135 H 98 01/26/20 23:56 113 H 99 01/26/20 23:51 133 H 98 01/26/20 23:45 181 H 95 01/26/20 23:40 125 H 99 01/26/20 23:35 131 H 99 01/26/20 23:30 118 H 98 01/26/20 23:25 133 H 96 01/26/20 23:24 144 H 92/74 01/26/20 23:20 111 H 98 01/26/20 23:15 101 H 99 10/23/20 23:10 98 H 99 10/23/20 23:09 88 120/80 10/23/20 23:05 94 H 98 10/23/20 23:00 111 H 98 10/23/20 22:55 97 H 98 10/23/20 22:54 85 119/69 10/23/20 22:50 98 H 99 10/23/20 22:45 93 H 100 1023/20 22:40 86 100 1023/20 22:38 94 H 118/63 1023/20 22:35 82 98 1023/20 22:30 83 97 10/23/20 22:25 98 H 99 1023/20 22:24 89 118/62 94 1023/20 22:20 94 H 99 23/20 22:15 88 98 23/20 22:10 81 97 1023/20 22:05 80 98 1023/20 21:55 99 H 100 1023/20 21:53 104 H 118/61 1023/20 21:50 90 99 1023/20 21:45 90 99 1023/20 21:40 83 116/65 100 10/23/20 21:35 85 98 1023/20 21:30 93 H 100 1023/20 21:25 78 120/61 100 1023/20 21:20 84 98 1023/20 21:15 102 H 99 1023/20 21:10 85 98 1023/20 21:09 81 122/59 87 1023/20 21:05 80 99 1023/20 21:00 77 100 1023/20 20:55 76 100 1023/20 20:53 70 124/71 10/23/20 20:50 85 100 10/23/20 20:45 79 98 10/23/20 20:40 82 118/61 99 10/23/20 20:35 88 99 10/23/20 20:30 70 99 10/23/20 20:25 81 112/63 98 10/23/20 20:20 93 H 99 10/23/20 20:15 81 97 10/23/20 20:10 89 99 10/23/20 20:09 86 118/62 1023/20 20:05 85 99 10/23/20 20:00 81 99 10/23/20 19:55 75 100 01/26/20 19:53 107 H 115/65 01/26/20 19:50 97 H 99 01/26/20 19:45 80 100 01/26/20 19:40 81 99 20 19:39 75 123/67 01/26/20 19:35 80 98 01/26/20 19:30 97 H 98 01/26/20 19:25 94 H 119/67 97 01/26/20 19:20 72 98 01/26/20 19:15 83 96 01/26/20 19:10 75 98 01/26/20 19:09 80 119/69 01/26/20 19:08 98.5 F 73 16 119/69 97 01/26/20 19:05 94 H 98 01/26/20 19:00 79 99 01/26/20 18:55 66 114/54 98 01/26/20 18:50 59 L 97 01/26/20 18:45 62 97 01/26/20 18:40 64 97 01/26/20 18:39 64 111/55 01/26/20 18:35 58 L 97 01/26/20 18:30 66 96 01/26/20 18:25 60 97 01/26/20 18:23 63 109/55 01/26/20 18:20 58 L 97 01/26/20 18:15 63 97 01/26/20 18:10 59 L 97 01/26/20 18:08 62 104/53 01/26/20 18:05 60 97 01/26/20 18:00 61 97 01/26/20 17:55 59 L 97 01/26/20 17:53 60 107/54 01/26/20 17:50 73 96 01/26/20 17:45 58 L 96 01/26/20 17:40 70 105/50 96 01/26/20 17:35 63 95 01/26/20 17:30 58 L 96 01/26/20 17:25 71 105/49 96 01/26/20 17:24 64 94 01/26/20 17:20 72 95 01/26/20 17:15 63 96 01/26/20 17:13 67 94 01/26/20 17:10 73 97 01/26/20 17:08 64 106/53 01/26/20 17:05 74 96 20 17:00 77 96 01/26/20 16:55 71 96 01/26/20 16:53 64 107/54 01/26/20 16:50 71 95 20 16:45 65 97 20 16:40 77 96 01/26/20 16:38 93 H 106/53 01/26/20 16:35 83 96 01/26/20 16:30 70 97 01/26/20 16:25 66 99 01/26/20 16:23 68 111/56 01/26/20 16:20 77 100 01/26/20 16:15 74 100 01/26/20 16:10 78 100 01/26/20 16:09 85 123/73 01/26/20 16:05 82 98 01/26/20 16:03 98.1 F 18 01/26/20 16:00 102 H 100 01/26/20 15:55 93 H 98 01/26/20 15:52 77 95/63 01/26/20 15:50 77 98 01/26/20 15:45 85 99 01/26/20 15:40 84 100 01/26/20 15:35 84 100 01/26/20 15:30 82 98 01/26/20 15:25 81 100 01/26/20 15:22 81 94 01/26/20 15:20 87 100 01/26/20 15:15 75 97 01/26/20 15:10 89 93 01/26/20 15:06 75 93 01/26/20 15:05 71 99 01/26/20 15:00 79 98 01/26/20 14:55 75 96 01/26/20 14:54 81 127/67 01/26/20 14:52 77 129/68 01/26/20 14:50 93 H 124/66 98 01/26/20 14:48 82 125/66 01/26/20 14:46 76 125/67 01/26/20 14:45 77 97 01/26/20 14:44 90 116/59 01/26/20 14:42 81 125/62 01/25/20 14:40 78 124/55 97 01/26/20 14:38 75 127/63 01/26/20 14:37 77 132/88 01/26/20 14:35 89 97 01/26/20 14:34 82 118/69 01/26/20 14:32 82 118/69 01/26/20 14:30 77 113/56 98 01/26/20 14:29 83 114/72 01/26/20 14:27 78 135/70 01/26/20 14:25 85 99 01/26/20 14:20 86 98 01/26/20 14:15 86 99 01/26/20 14:10 101 H 99 01/26/20 14:05 86 99 01/26/20 14:00 102 H 99 01/26/20 13:55 112 H 98 01/26/20 13:50 91 H 99 01/26/20 13:45 86 98 01/26/20 13:40 81 96 01/26/20 13:35 86 98 01/26/20 13:31 74 133/67 01/26/20 13:30 77 97 01/26/20 12:16 77 99 01/26/20 12:11 68 98 01/26/20 12:06 84 97 01/26/20 12:01 87 97 01/26/20 12:00 97.8 F 18 01/26/20 11:59 81 94 01/26/20 11:56 80 97 01/26/20 11:51 75 98 01/26/20 11:46 79 99 01/26/20 11:41 89 97 01/26/20 11:26 90 97 01/26/20 11:21 81 96 01/26/20 11:19 72 93 01/26/20 11:16 72 97 01/26/20 11:11 72 95 01/26/20 11:06 73 92 01/26/20 11:03 74 92 01/26/20 11:01 70 98 01/26/20 10:57 74 94 01/26/20 10:56 74 100 01/26/20 10:51 73 98 01/26/20 10:46 73 98 01/26/20 10:41 78 97 01/26/20 10:36 70 98 01/26/20 10:31 85 98 01/26/20 10:26 82 97 01/26/20 10:21 73 97 01/26/20 10:16 76 97 01/26/20 10:11 80 97 01/26/20 10:06 83 96 01/26/20 10:01 74 97 Intake and Output 01/26/20 01/27/20 01/27/20 22:59 06:59 14:59 Intake Total 120 Balance 120 Intake: Oral 120 Other: Total, Intake Amount 120 # Voids Void 1 Estimated Blood Loss 300 - Exam Breasts: Present: deferred Cardiovascular: Present: Regular rate Lungs: Present: Normal air movement Abdomen: Present: normal appearance, soft Uterus: Present: fundal height at umbilicus Extremities: Present: normal - Labs Labs: Abnormal lab results 01/26/20 Range/Units 10:09 Coronavirus (PCR) Positive A (Negative)
[2020-01-27 19:56] LABS: Hematocrit 28.7 % (30.3-42.9)
--- NOTE | 2020-01-27 20:19 | Post Anesthesia Evaluation ---
- Post Anesthesia Evaluation Patient Participated: Yes Airway Patent: Yes Stable Respiratory Function: Yes Nausea/Vomiting: No Temp > 96.8F: Yes Pain Manageable: Yes Adequeate Hydration: Yes Anesthesia Complications: No Block Receding Appropriately: Yes
[2020-01-28] MEDS: IBUPROFEN 800 MG TAB PO SCH ×3 (00:33→10:59)
--- NOTE | 2020-01-28 11:00 | XRay Report ---
CHEST 1 VIEW INDICATION: MAIN COMPARISON: None FINDINGS: Support devices: None Heart: Normal Lungs/Pleura: No acute pulmonary or pleural findings. IMPRESSION: 1. No acute disease. Signer Name: Holland Garcias MD Signed: 01/28/2020 10:56 AM Workstation Name: [id number]
--- NOTE | 2020-01-28 13:09 | Discharge Summary ---
Providers - Providers Date of Admission: 01/26/20 01:25 Date of discharge: 01/28/20 Attending physician: KURT GARIBAY Primary care physician: KURT GARIBAY Hospitalization Reason for admission: active labor, rupture of membranes, IUP at term Delivery: Episiotomy: none Laceration: none, 1st degree Other procedures: none complications: other (Positive COVID-19 test) Discharge diagnosis: IUP at term delivered, other (Positive COVID-19 asymptomatic) [place] baby: male Hospital course: See dictated H&P. Patient was admitted underwent a normal spontaneous vaginal delivery. Her course was positive COVID-19. Patient was asymptomatic and had a clear chest x-ray. She was afebrile throughout her stay. Her day 1 hematocrit was 28.7%. Discussed with mother and father the baby the elective nature of circumcision. His risk of bleeding infection possible damage to the penis. Patient did sign circumcision consent and will have a family member bring infant to the office for circumcision. Condition at discharge: Good Disposition: DC-01 TO HOME OR SELFCARE - Discharge Diagnoses (1) Delivery normal Status: Acute (2) COVID-19 Status: Acute Plan - Discharge Medications Prescriptions: Lidocain2.5%/Prilocai2.5% [Emla] 2 gm TP ONCE #1 tube Ferrous Sulfate [Feosol 325 MG tab] 325 mg PO BID #60 tablet Ibuprofen [Motrin 800 MG tab] 800 mg PO Q6H PRN #30 tablet PRN Reason: Pain - Provider Discharge Summary Activity: routine, no sex for 6 weeks Diet: routine Instructions: routine Additional instructions: [] Smoking cessation referral if applicable(refer to patient education folder for contact #) [] Refer to [facility] Booklet Call your doctor immediately for: * Fever > 100.5 * Heavy vaginal bleeding ( >1 pad per hour) * Severe persistent headache * Shortness of breath * Reddened, hot, painful area to leg or breast * Drainage or odor from incision. *Patient is quarantine release some 14 days and required to have a negative Covid test prior to return her office. Patient to call to schedule her her son circumcision. - Follow up plan Follow up: KURT GARIBAY MD [Primary Care Provider] - 7 Days
[2020-01-28 18:26] VITALS: BP 131/44
== END 2020-01-28 17:50 | disposition home or self-care (01) | DRG 774 ==
LOC: TRG 00:48 → APU 00:59 → TRG 01:25 → LD 01:25 → OB 01-27 04:46
PROVIDERS: ADMIT Obstetrics & Gynecology; ATTEND Obstetrics & Gynecology
PROC: 10E0XZZ Delivery of Products of Conception, External Approach (ICD-10-PCS; principal; 2020-01-27)
PROC: 3E033VJ Introduction of Other Hormone into Peripheral Vein, Percutaneous Approach (ICD-10-PCS; 2020-01-27)
PROC: 3E0R3BZ Introduction of Anesthetic Agent into Spinal Canal, Percutaneous Approach (ICD-10-PCS; 2020-01-27)
PROC: 00HU33Z Insertion of Infusion Device into Spinal Canal, Percutaneous Approach (ICD-10-PCS; 2020-01-27)
DX: O98.52 Other viral diseases complicating childbirth (principal); Z37.0 Single live birth; Z3A.37 37 weeks gestation of pregnancy; U07.1 COVID-19; O62.2 Other uterine inertia; O69.1XX0 Labor and delivery complicated by cord around neck, with compression, not applicable or unspecified
CPT/HCPCS: 36415; 71045; 85014; 85018; 85027; 86592; 86850; 86900; 86901; 88307; G0378; J0595; J2210; J2405; J2590; J3010; J7120; U0003